=== PATIENT | male | born 1940 | race Caucasian/White ===

== ENCOUNTER → 2019-10-22 08:24 | Outpatient (BNVA) | payer MEDICARE, SELFPAY | PROVIDERS: Family Provider Family Medicine; PCP Family Medicine; Visit Provider Urology | DX: N40.1 Benign prostatic hyperplasia with lower urinary tract symptoms (principal); N41.1 Chronic prostatitis | CPT/HCPCS: 81001 ==

== ENCOUNTER → 2020-10-24 07:54 | Outpatient (BNVA) | payer MEDICARE, SELFPAY | PROVIDERS: Family Provider Family Medicine; PCP Family Medicine; Visit Provider Urology | DX: N40.1 Benign prostatic hyperplasia with lower urinary tract symptoms (principal); N41.1 Chronic prostatitis | CPT/HCPCS: 81003 ==

== ENCOUNTER → 2021-08-15 14:08 | Outpatient (BNVA) | payer MEDICARE, SELFPAY | PROVIDERS: Family Provider Family Medicine; PCP Family Medicine; Visit Provider Family Medicine | DX: Z00.00 Encounter for general adult medical examination without abnormal findings (principal); I10 Essential (primary) hypertension; E78.5 Hyperlipidemia, unspecified; E11.9 Type 2 diabetes mellitus without complications | CPT/HCPCS: 80053; 80061; 83036; 85007; 85025 ==

== ENCOUNTER → 2021-10-31 08:30 | Outpatient (BNVA) | payer MEDICARE, SELFPAY | PROVIDERS: Family Provider Family Medicine; PCP Family Medicine; Visit Provider Urology | DX: N40.1 Benign prostatic hyperplasia with lower urinary tract symptoms (principal); N41.1 Chronic prostatitis | CPT/HCPCS: 51798; 81003; 99213 ==

== ENCOUNTER → 2022-02-20 08:27 | Outpatient (BNVA) | payer MEDICARE, SELFPAY | PROVIDERS: Family Provider Family Medicine; PCP Family Medicine; Visit Provider Family Medicine | DX: I10 Essential (primary) hypertension (principal); E78.5 Hyperlipidemia, unspecified; E11.9 Type 2 diabetes mellitus without complications; N41.1 Chronic prostatitis | CPT/HCPCS: 80053; 80061; 83036 ==

== ENCOUNTER → 2022-08-28 08:05 | Outpatient (BNVA) | payer MEDICARE, SELFPAY | PROVIDERS: Family Provider Family Medicine; PCP Family Medicine; Visit Provider Family Medicine | DX: I10 Essential (primary) hypertension (principal); E78.5 Hyperlipidemia, unspecified; E11.9 Type 2 diabetes mellitus without complications | CPT/HCPCS: 80053; 80061; 83036 ==

== ENCOUNTER → 2023-03-11 13:50 | Outpatient (BNVA) | payer MEDICARE, SELFPAY | PROVIDERS: Family Provider Family Medicine; PCP Family Medicine; Visit Provider Family Medicine | DX: I10 Essential (primary) hypertension (principal); E78.5 Hyperlipidemia, unspecified; E11.9 Type 2 diabetes mellitus without complications | CPT/HCPCS: 80053; 80061; 83036 ==

== ENCOUNTER → 2023-09-19 07:33 | Outpatient (BNVA) | payer MEDICARE, SELFPAY | PROVIDERS: Family Provider Family Medicine; PCP Family Medicine; Visit Provider Family Medicine | DX: E11.9 Type 2 diabetes mellitus without complications (principal); E78.5 Hyperlipidemia, unspecified; I10 Essential (primary) hypertension | CPT/HCPCS: 80053; 80061; 83036; 85007; 85025 ==

== ENCOUNTER → 2023-10-16 08:02 | Outpatient (BNVA) | payer MEDICARE, SELFPAY | PROVIDERS: Family Provider Family Medicine; PCP Family Medicine; Visit Provider Family Medicine | DX: D72.829 Elevated white blood cell count, unspecified (principal) | CPT/HCPCS: 85007; 85025 ==

== ENCOUNTER → 2024-01-28 07:51 | Outpatient (BNVA) | payer MEDICARE, SELFPAY | PROVIDERS: Family Provider Family Medicine; PCP Family Medicine; Visit Provider Family Medicine | DX: D72.829 Elevated white blood cell count, unspecified (principal); E11.9 Type 2 diabetes mellitus without complications | CPT/HCPCS: 85025 ==

== ENCOUNTER → 2024-03-19 07:53 | Outpatient (BNVA) | payer MEDICARE, SELFPAY | PROVIDERS: Family Provider Family Medicine; PCP Family Medicine; Visit Provider Family Medicine | DX: I10 Essential (primary) hypertension (principal); E11.9 Type 2 diabetes mellitus without complications; E78.5 Hyperlipidemia, unspecified; D72.829 Elevated white blood cell count, unspecified | CPT/HCPCS: 80053; 80061; 80503; 83036; 85025 ==

== ENCOUNTER 2024-05-26 13:00 | Oncology outpatient (recurring) (ONCR) | payer MEDICARE, SELFPAY ==
[2024-05-13 16:02] LABS: Erythrocyte Sedimentation Rate 5 mm/hr (0-10); Reticulocyte % 1.8 % (0.5-2.0)
[2024-05-13 16:16] LABS: Alanine Aminotransferase 22 U/L (0-41); Alkaline Phosphatase 98 U/L (40-130); Aspartate Amino Transferase 23 U/L (0-40); Blood Urea Nitrogen 12 mg/dL (8-23); Calcium 9.4 mg/dL (8.5-10.5); Carbon Dioxide 26 mmol/L (22-29); Chloride 105 mmol/L (98-107); Globulin 3.1 g/dL (1.3-4.6); Glucose 146 mg/dL (65-115); Immunoglobulin IGA 167 mg/dL (70-400); Immunoglobulin IGG 1335 mg/dL (700-1600); Immunoglobulin IGM 61 mg/dL (40-230); Osmolality Calculated 292 mOsm/kg (285-295); Phosphorus 3.5 mg/dL (2.5-4.5); Sodium 140 mmol/L (136-145); Total Bilirubin 0.5 mg/dL (0.15-1.2); Total Protein 7.1 g/dL (6.6-8.7); Uric Acid 5.1 mg/dL (3.4-7.0)
[2024-05-13 16:23] LABS: Basophils # 0.1 10^3/uL (0.0-0.1); Basophils % 0.4 %; Eosinophils # 0.1 10^3/uL (0.0-0.8); Eosinophils % 0.9 %; Hematocrit 39.5 % (37-53); Lymphocytes # 11.1 10^3/uL (0.8-4.8); Mean Corpuscular HGB Conc 33.9 g/dL (30-55); Mean Corpuscular Hemoglobin 30.6 pg (27-33); Mean Corpuscular Volume 90.2 fl (82-101); Mean Platelet Volume 9.9 fL (7.4-10.4); Monocytes # 0.6 10^3/uL (0.2-0.9); Monocytes % 3.8 %; Neutrophils # 3.91 10^3/uL (1.8-7.7); Neutrophils % 24.7 %; Nucleated Red Blood Cells % 0 %; Platelet Count 197 10^3/cmm (157-399); Red Blood Count 4.38 10^6/uL (3.85-5.65); Red Cell Distribution Width 12.2 % (12.1-15.1); White Blood Count 15.82 10^3/uL (3.29-11.43)
[2024-05-13 16:48] LABS: Slide Review Slide Review Perform
[2024-05-13 16:55] LABS: Lactate Dehydrogenase 175 U/L (135-225)
[2024-05-14 06:00] LABS: PROTEIN, TOTAL 7.2 g/dL (6.1-8.1)
[2024-05-14 06:03] LABS: Beta-2-Microglobulin 2.88 mg/L (< OR = 2.51)
[2024-05-14 20:30] LABS: ALBUMIN 4.3 g/dL (3.8-4.8); ALPHA 1 GLOBULIN 0.3 g/dL (0.2-0.3); ALPHA 2 GLOBULIN 0.6 g/dL (0.5-0.9); BETA 1 GLOBULIN 0.5 g/dL (0.4-0.6); BETA 2 GLOBULIN 0.3 g/dL (0.2-0.5); GAMMA GLOBULIN 1.2 g/dL (0.8-1.7)
[2024-05-17 14:04] LABS: Immunofixation Serum Normal pattern.
[2024-05-18 07:38] LABS: Leukemia Profile (BBPL) See Report
[2024-05-26] MEDS: iohexol 350 mg/mL 500 mL Btl (per mL) PO (12:35)
--- NOTE | 2024-05-26 13:00 | CTR_ITS ---
PROCEDURE INFORMATION: Exam: CT Chest With Contrast; Diagnostic Exam date and time: 05/26/2024 1:19 PM Age: 83 years old Clinical indication: Condition or disease; Other: Leukocytosis TECHNIQUE: Imaging protocol: Diagnostic computed tomography of the chest with contrast. Radiation optimization: All CT scans at this facility use at least one of these dose optimization techniques: automated exposure control; mA and/or kV adjustment per patient size (includes targeted exams where dose is matched to clinical indication); or iterative reconstruction. Contrast material: OMNI 350; Contrast volume: 75 ml; Contrast route: INTRAVENOUS (IV); COMPARISON: CR XR chest 1V [id number] 12/17/2017 7:42 PM RADIATION DOSE METRICS: Total DLP (mGy-cm): 1067.5 FINDINGS: Lungs: Small nodules at each lung base. The largest is on the right and measures 7 mm in diameter, this largest area is in the location of a slightly nodular infiltrate. Pleural spaces: Unremarkable. No pneumothorax. No pleural effusion. Heart: Unremarkable. No cardiomegaly. No pericardial effusion. Coronary arteries: Coronary artery calcifications. Lymph nodes: Unremarkable. No enlarged lymph nodes. Vasculature: Unremarkable. No aortic aneurysm. Bones/joints: Unremarkable. No acute fracture. Soft tissues: Unremarkable. Chest at 18-24 months. (Reference: Carolannhoshlomo) REFERENCES: Carolannhoshlomo H, et al. Guidelines for Management of Incidental Pulmonary Nodules Detected on CT Images: From the Fleischner Society 2017. Radiology. 2017;284(1):228-243. PROCEDURE INFORMATION: Exam: CT Abdomen And Pelvis With Contrast Exam date and time: 05/26/2024 1:19 PM Age: 83 years old Clinical indication: Condition or disease; Other: Leukocytosis TECHNIQUE: Imaging protocol: Computed tomography of the abdomen and pelvis with contrast. Radiation optimization: All CT scans at this facility use at least one of these dose optimization techniques: automated exposure control; mA and/or kV adjustment per patient size (includes targeted exams where dose is matched to clinical indication); or iterative reconstruction. Contrast material: OMNI 350; Contrast volume: 75 ml; Contrast route: INTRAVENOUS (IV); COMPARISON: CT abdomen pelvis w con* [id number] 12/17/2017 6:25 PM RADIATION DOSE METRICS: Total DLP (mGy-cm): 1067.5 FINDINGS: Liver: Normal. No mass. Gallbladder and biliary ducts: Normal. No calcified stones. No ductal dilation. Pancreas: Normal. No ductal dilation. Spleen: Mild 13 cm splenomegaly. Adrenal glands: Normal. No mass. Kidneys and ureters: Small bilateral renal cysts. Stomach and bowel: Diverticulosis without evidence of diverticulitis. Appendix: No evidence of appendicitis. Intraperitoneal space: Unremarkable. No free air. No significant fluid collection. Vasculature: Unremarkable. No abdominal aortic aneurysm. Lymph nodes: Unremarkable. No enlarged lymph nodes. Urinary bladder: Unremarkable as visualized. Reproductive: Unremarkable as visualized. Bones/joints: Bilateral L5 spondylolysis with minimal spondylolisthesis. Soft tissues: Unremarkable. CT/CT chest abdpel w/*[id number] IMPRESSION: 1. Small lower lobe pulmonary nodules. 2. For patients at low risk (minimal or absent history of smoking and of other known risk factors), recommend CT Chest at 3-6 months, then consider CT Chest at 18-24 months. For patients at high risk (history of smoking or of other known risk factors), recommend CT Chest at 3-6 months, then CT IMPRESSION: No acute findings. COMMENTS: Consistent with the [employer]'s Incidental Findings Committee white paper (J Am Chen Radiol 2018): Any incidental renal lesion less than 1 cm or classified as too small to characterize, or any incidental cystic renal lesion characterized as simple-appearing, is likely benign. No follow-up imaging is recommended for these lesions per consensus recommendations based on imaging criteria.
--- NOTE | 2024-05-26 13:30 | CTR_ITS ---
PROCEDURE INFORMATION: Exam: CT Neck With Contrast Exam date and time: 05/26/2024 1:26 PM Age: 83 years old Clinical indication: Condition or disease; Other: Leukocytosis TECHNIQUE: Imaging protocol: Computed tomography of the neck with contrast. Sagittal and coronal reformatted images were also reviewed. Radiation optimization: All CT scans at this facility use at least one of these dose optimization techniques: automated exposure control; mA and/or kV adjustment per patient size (includes targeted exams where dose is matched to clinical indication); or iterative reconstruction. Contrast material: OMNI 350; Contrast volume: 75 ml; Contrast route: INTRAVENOUS (IV); COMPARISON: CT chest abdpel w/*[id number] 05/26/2024 1:19 PM RADIATION DOSE METRICS: Total DLP (mGy-cm): 205.96 FINDINGS: Orbital cavities: No acute abnormality in the visualized orbits. Paranasal sinuses: Visualized paranasal sinuses are clear. Mastoid air cells: Visualized mastoid air cells are clear. Salivary glands: The right and left parotid glands are unremarkable. The right and left submandibular glands are unremarkable. Pharynx: Unremarkable. No significant tonsillar enlargement. Larynx: The larynx is unremarkable. The epiglottis is unremarkable. Thyroid: Small nodules in the thyroid gland, the largest in the left thyroid lobe measures 1.7 x 1.4 cm (series 3, image 86). Trachea: Trachea is midline and patent. Lungs: Visualized lungs are clear. Lymph nodes: No lymphadenopathy. Vasculature: Moderate atherosclerotic changes in the visualized arteries. Bones/joints: Multilevel degenerative changes of varying severity in the visualized spine. Soft tissues: No soft tissue swelling or soft tissue emphysema. No radiopaque foreign body. No abscess. CT/CT neck w con* [id number] IMPRESSION: 1. No acute abnormality of the cervical soft tissues. 2. Small nodules in the thyroid gland, the largest in the left thyroid lobe measures 1.7 x 1.4 cm. Follow-up non-emergent thyroid ultrasound is recommended. 3. Incidental/nonacute findings are listed in the report. COMMENTS: Consistent with the [employer]'s Incidental Findings Committee white paper (J Am Chen Radiol 2015): In patients aged 35 years and older with an incidental thyroid nodule equal to or greater than 1.[address], MRI or extrathyroidal US, further evaluation with dedicated thyroid US is recommended for patients with normal life expectancy and without comorbidities. For smaller nodules without suspicious features, no further evaluation or follow up is recommended.
[2024-05-26] MEDS: iohexol 350 mg/mL 500 mL Btl (per mL) IV (13:31)
== END 2024-06-01 23:59 | disposition home or self-care (01) ==
LOC: RAD 05-27 → ONCMED 05-27 11:16
PROVIDERS: Family Provider Family Medicine; PCP Family Medicine; Visit Provider Internal Medicine
DX: Z53.9 Procedure and treatment not carried out, unspecified reason (principal); D72.89 Other specified disorders of white blood cells; R91.8 Other nonspecific abnormal finding of lung field; E04.1 Nontoxic single thyroid nodule
CPT/HCPCS: 36415; 70491; 71260; 74177; 80053; 82232; 82784; 83010; 83615; 84100; 84155; 84165; 84550; 85025; 85045; 85651; 86334; 86880; 88184; 88185; 99204

== ENCOUNTER 2024-06-24 12:00 | Oncology outpatient (recurring) (ONCR) | payer MEDICARE, SELFPAY ==
--- NOTE | 2024-06-18 10:30 | USR_ITS ---
PROCEDURE INFORMATION: Exam: US Bilateral Noninvasive Physiologic Study of the Lower Extremity Arteries, Limited Exam date and time: 06/18/2024 10:10 AM Age: 83 years old Clinical indication: Pain; Leg, lower; Bilateral; Additional info: Claudication TECHNIQUE: Imaging protocol: Bilateral Limited bilateral noninvasive physiologic studies of lower extremity arteries. Waveforms were obtained and evaluated. Images were documented and archived. Exam is limited. COMPARISON: CT abdomen pelvis w con* [id number] 12/17/2017 6:25 PM FINDINGS: Right Ankle-Brachial Index: 0.78 at the ankle, 0.81 at the dorsalis pedis, 0.55 at the digit. Left Ankle-Brachial Index: 0.58 at the ankle, the 0.43 at the digits. US/CV ankle brachial index [id number] IMPRESSION: Diminished JOSEPH particularly on the left side.
[2024-06-24 12:07] LABS: Hematocrit 41.4 % (37-53); Mean Corpuscular HGB Conc 33.8 g/dL (30-55); Mean Corpuscular Hemoglobin 30.2 pg (27-33); Mean Corpuscular Volume 89.2 fl (82-101); Mean Platelet Volume 9.8 fL (7.4-10.4); Platelet Count 204 10^3/cmm (157-399); Red Blood Count 4.64 10^6/uL (3.85-5.65); Red Cell Distribution Width 12.1 % (12.1-15.1)
[2024-06-24 12:09] LABS: Erythrocyte Sedimentation Rate 4 mm/hr (0-10)
[2024-06-24 12:23] LABS: Alanine Aminotransferase 16 U/L (0-41); Albumin Level 4.2 g/dL (3.5-5.2); Alkaline Phosphatase 110 U/L (40-130); Anion Gap 12.9 (5-19); Aspartate Amino Transferase 15 U/L (0-40); Blood Urea Nitrogen 12 mg/dL (8-23); Calcium 9.7 mg/dL (8.5-10.5); Carbon Dioxide 27 mmol/L (22-29); Chloride 104 mmol/L (98-107); Creatinine Clr Calc Pharmacy 69.5151; Globulin 3.3 g/dL (1.3-4.6); Glucose 211 mg/dL (65-115); Lactate Dehydrogenase 167 U/L (135-225); Osmolality Calculated 294 mOsm/kg (285-295); Potassium 4.9 mmol/L (3.5-5.1); Sodium 139 mmol/L (136-145); Total Bilirubin 0.7 mg/dL (0.15-1.2); Total Protein 7.5 g/dL (6.6-8.7)
[2024-06-24 12:36] LABS: Slide Review Slide Review Perform
[2024-06-24 12:37] LABS: Absolute Eosinophils 0.2 10^3/cmm (0.0-0.7); Absolute Neutrophil 2.8 10^3/cmm (1.4-6.5); Absolute Segmented Neutrophil 2.5 10/cmm (1.6-7.1); Band Neutrophils Absolute 0.3 10^3/cmm (0.0-1.2); Eosinophils 1 %; Lymphocytes 30 %; Lymphocytes Absolute 12.2 10^3/cmm (1.2-3.4); Monocytes Absolute 0.5 10^3/cmm (0.1-0.6); Platelet Estimate Normal (Normal); Segmented Neutrophils 16 %; Total Cells Counted 100 (0-100)
[2024-06-25 07:29] LABS: PROTEIN, TOTAL 6.8 g/dL (6.1-8.1)
[2024-06-26 11:39] LABS: ALPHA 1 GLOBULIN 0.2 g/dL (0.2-0.3); ALPHA 2 GLOBULIN 0.6 g/dL (0.5-0.9); BETA 1 GLOBULIN 0.4 g/dL (0.4-0.6); BETA 2 GLOBULIN 0.4 g/dL (0.2-0.5); GAMMA GLOBULIN 1.2 g/dL (0.8-1.7)
[2024-06-28 15:24] LABS: Immunofixation Serum Normal pattern.
[2024-07-02 21:25] LABS: IGVH Status MUTATED
== END 2024-07-01 23:59 | disposition home or self-care (01) ==
PROVIDERS: Internal Medicine; Family Provider Family Medicine; PCP Family Medicine; Visit Provider Family Medicine
DX: Z53.9 Procedure and treatment not carried out, unspecified reason; C91.10 Chronic lymphocytic leukemia of B-cell type not having achieved remission; I10 Essential (primary) hypertension; E78.5 Hyperlipidemia, unspecified; E11.9 Type 2 diabetes mellitus without complications; N41.1 Chronic prostatitis; R91.8 Other nonspecific abnormal finding of lung field; E04.1 Nontoxic single thyroid nodule; Z87.891 Personal history of nicotine dependence
CPT/HCPCS: 36415; 80053; 81263; 82232; 83615; 84155; 84165; 85007; 85025; 85651; 86334; 88185; 88264; 88271; 88367; 88374; 93922; 99213

== ENCOUNTER 2024-07-02 09:15 | Oncology outpatient (recurring) (ONCR) | payer MEDICARE, SELFPAY ==
--- NOTE | 2024-07-02 09:30 | US_ITS ---
WS: [id number] Thyroid ultrasound, 07/02/2024 Clinical Data: thyroid nodules Comparison: None. Findings: The right lobe of thyroid measures 4.9 cm x 1.5 cm x 2.2 cm. The left lobe measures 4.7 cm x 2.6 cm x 3.0 cm. The isthmus measured 0.3 mm. The echotexture of the thyroid is mixed. Numerous small cysts are seen. There is a nodule in the left thyroid measuring 2.1 x 2.2 x 2.4 cm. US/US thyroid [id number] Impression: 1. Multinodular goiter. 2. Small nodule left thyroid.
== END 2024-08-01 23:59 | disposition home or self-care (01) ==
PROVIDERS: PCP Family Medicine; Visit Provider Internal Medicine
DX: C91.10 Chronic lymphocytic leukemia of B-cell type not having achieved remission (principal); E04.1 Nontoxic single thyroid nodule; E04.2 Nontoxic multinodular goiter
CPT/HCPCS: 76536

== ENCOUNTER → 2024-07-07 10:29 | Outpatient (BNVA) | payer MEDICARE, SELFPAY | PROVIDERS: PCP Family Medicine; Visit Provider Internal Medicine | DX: E04.1 Nontoxic single thyroid nodule (principal) | CPT/HCPCS: 99214 ==

== ENCOUNTER 2024-08-21 07:32 | Oncology outpatient (recurring) (ONCR) | payer MEDICARE, SELFPAY ==
--- NOTE | 2024-08-21 07:45 | CTR_ITS ---
PROCEDURE INFORMATION: Exam: CT Chest With Contrast; Diagnostic Exam date and time: 08/21/2024 8:03 AM Age: 84 years old Clinical indication: Condition or disease; Other: Thyroid nodule; Additional info: Thyroid nodules, Dr morales would like this 09/16/24 TECHNIQUE: Imaging protocol: Diagnostic computed tomography of the chest with contrast. Radiation optimization: All CT scans at this facility use at least one of these dose optimization techniques: automated exposure control; mA and/or kV adjustment per patient size (includes targeted exams where dose is matched to clinical indication); or iterative reconstruction. Contrast material: OMNI 350; Contrast volume: 100 ml; Contrast route: INTRAVENOUS (IV); COMPARISON: CT chest abdpel w/*[id number] 05/26/2024 1:19 PM RADIATION DOSE METRICS: Total DLP (mGy-cm): 456.62 FINDINGS: Thyroid: Multiple thyroid nodules are noted. The largest nodule measures 1.3 cm on the left. Lungs: There is a group of tiny irregular pleural-based nodules within the superior aspect of the right lower lobe. The largest nodule within this group measures 8 mm. No other nodule or infiltrate noted. Pleural spaces: Unremarkable. No pneumothorax. No pleural effusion. Heart: Unremarkable. No cardiomegaly. No pericardial effusion. Lymph nodes: Unremarkable. No enlarged lymph nodes. Vasculature: Unremarkable. No aortic aneurysm. Bones/joints: Unremarkable. No acute fracture. Soft tissues: Unremarkable. CT/CT chest w con* [id number] IMPRESSION: 1. Stable small thyroid nodules 2. Stable right lung nodules which are felt to most likely represent granulomas 3. For patients at low risk (minimal or absent history of smoking and of other known risk factors), no routine follow-up is indicated. For patients at high risk (history of smoking or of other known risk factors), consider optional CT Chest at 12 months. (Reference: Nilay) COMMENTS: Consistent with the [employer]'s Incidental Findings Committee white paper (J Am Chen Radiol 2015): In patients aged 35 years and older with an incidental thyroid nodule equal to or greater than 1.[address], MRI or extrathyroidal US, further evaluation with dedicated thyroid US is recommended for patients with normal life expectancy and without comorbidities. For smaller nodules without suspicious features, no further evaluation or follow up is recommended. REFERENCES: Nilay Bates et al. Guidelines for Management of Incidental Pulmonary Nodules Detected on CT Images: From the Fleischner Society 2017. Radiology. 2017;284(1):228-243.
[2024-08-21] MEDS: iohexol 350 mg/mL 500 mL Btl (per mL) IV (07:51)
[2024-08-21 08:00] LABS: Blood Urea Nitrogen 13 mg/dL (8-23)
== END 2024-08-31 23:59 | disposition home or self-care (01) ==
LOC: ONCMED 07:33 → RAD 07:33 → ONCMED 08-24 10:00
PROVIDERS: PCP Family Medicine; Visit Provider Internal Medicine
DX: C91.10 Chronic lymphocytic leukemia of B-cell type not having achieved remission (principal); E04.1 Nontoxic single thyroid nodule; E04.2 Nontoxic multinodular goiter
CPT/HCPCS: 71260; 82565; 84520

== ENCOUNTER → 2024-09-17 08:07 | Outpatient (BNVA) | payer MEDICARE, SELFPAY | PROVIDERS: PCP Family Medicine; Visit Provider Family Medicine | DX: D72.820 Lymphocytosis (symptomatic) (principal); I10 Essential (primary) hypertension; E78.5 Hyperlipidemia, unspecified; E11.9 Type 2 diabetes mellitus without complications | CPT/HCPCS: 80053; 80061; 83036; 85025 ==

== ENCOUNTER 2024-09-23 12:58 | Oncology outpatient (recurring) (ONCR) | payer MEDICARE, SELFPAY ==
[2024-09-23 13:47] LABS: Hematocrit 41.4 % (37-53); Hemoglobin 14.20 g/dL (11.27-16.99); Mean Corpuscular HGB Conc 34.3 g/dL (30-55); Mean Corpuscular Hemoglobin 30.7 pg (27-33); Mean Corpuscular Volume 89.6 fl (82-101); Platelet Count 233 10^3/cmm (157-399); Red Blood Count 4.62 10^6/uL (3.85-5.65); White Blood Count 16.37 10^3/uL (3.29-11.43)
[2024-09-23 14:06] LABS: Alanine Aminotransferase 16 U/L (0-41); Albumin Level 4.1 g/dL (3.5-5.2); Alkaline Phosphatase 111 U/L (40-130); Anion Gap 17.0 (5-19); Aspartate Amino Transferase 17 U/L (0-40); Blood Urea Nitrogen 11 mg/dL (8-23); Calcium 9.8 mg/dL (8.5-10.5); Carbon Dioxide 25 mmol/L (22-29); Chloride 102 mmol/L (98-107); Creatinine Clr Calc Pharmacy 68.0122; Globulin 3.3 g/dL (1.3-4.6); Glucose 186 mg/dL (65-115); Osmolality Calculated 294 mOsm/kg (285-295); Potassium 4.0 mmol/L (3.5-5.1); Sodium 140 mmol/L (136-145); Total Protein 7.4 g/dL (6.6-8.7)
[2024-09-23 14:29] LABS: Slide Review Slide Review Perform; Total Cells Counted 100 (0-100)
[2024-09-23 14:30] LABS: Absolute Segmented Neutrophil 4.4 10/cmm (1.6-7.1); Atypical Lymphs 21.0 % (0-5); Band Neutrophils Absolute 0.0 10^3/cmm (0.0-1.2)
[2024-09-24 05:20] LABS: PROTEIN, TOTAL 7.3 g/dL (6.1-8.1)
[2024-09-24 19:19] LABS: ALPHA 1 GLOBULIN 0.3 g/dL (0.2-0.3); ALPHA 2 GLOBULIN 0.7 g/dL (0.5-0.9); BETA 1 GLOBULIN 0.5 g/dL (0.4-0.6); BETA 2 GLOBULIN 0.4 g/dL (0.2-0.5)
== END 2024-10-01 23:59 | disposition home or self-care (01) ==
PROVIDERS: PCP Family Medicine; Visit Provider Internal Medicine
DX: C91.10 Chronic lymphocytic leukemia of B-cell type not having achieved remission (principal); E04.1 Nontoxic single thyroid nodule; N41.1 Chronic prostatitis; R91.8 Other nonspecific abnormal finding of lung field; E11.9 Type 2 diabetes mellitus without complications; I10 Essential (primary) hypertension
CPT/HCPCS: 36415; 80053; 82784; 83010; 83615; 84155; 84165; 85007; 85025; 85651; 86334; 99213

== ENCOUNTER 2024-12-23 12:00 | Oncology outpatient (recurring) (ONCR) | payer MEDICARE, SELFPAY ==
[2024-12-23 12:44] LABS: Hematocrit 40.1 % (37-53); Hemoglobin 13.80 g/dL (11.27-16.99); Mean Corpuscular HGB Conc 34.4 g/dL (30-55); Mean Corpuscular Hemoglobin 30.5 pg (27-33); Mean Corpuscular Volume 88.5 fl (82-101); Nucleated Red Blood Cells % 0 %; Platelet Count 211 10^3/cmm (157-399); Red Blood Count 4.53 10^6/uL (3.85-5.65); White Blood Count 14.80 10^3/uL (3.29-11.43)
[2024-12-23 13:08] LABS: Alanine Aminotransferase 19 U/L (0-41); Albumin Level 4.4 g/dL (3.5-5.2); Alkaline Phosphatase 113 U/L (40-130); Anion Gap 15.5 (5-19); Aspartate Amino Transferase 19 U/L (0-40); Blood Urea Nitrogen 11 mg/dL (8-23); Calcium 9.5 mg/dL (8.5-10.5); Carbon Dioxide 26 mmol/L (22-29); Chloride 103 mmol/L (98-107); Creatinine Clr Calc Pharmacy 68.9863; Globulin 2.9 g/dL (1.3-4.6); Glucose 240 mg/dL (65-115); Osmolality Calculated 297 mOsm/kg (285-295); Potassium 4.5 mmol/L (3.5-5.1); Sodium 140 mmol/L (136-145); Total Protein 7.3 g/dL (6.6-8.7); Uric Acid 5.2 mg/dL (3.4-7.0)
[2024-12-23 13:41] LABS: Slide Review Slide Review Perform
== END 2025-01-01 23:59 | disposition home or self-care (01) ==
PROVIDERS: PCP Family Medicine; Visit Provider Internal Medicine
DX: C91.10 Chronic lymphocytic leukemia of B-cell type not having achieved remission (principal); N41.1 Chronic prostatitis; E11.9 Type 2 diabetes mellitus without complications; I10 Essential (primary) hypertension; E04.1 Nontoxic single thyroid nodule; R91.8 Other nonspecific abnormal finding of lung field
CPT/HCPCS: 36415; 80053; 83615; 84550; 85025; 99213

== ENCOUNTER → 2025-01-07 08:07 | Outpatient (BNVA) | payer MEDICARE, SELFPAY | PROVIDERS: PCP Family Medicine; Visit Provider Family Medicine | DX: E11.9 Type 2 diabetes mellitus without complications (principal) | CPT/HCPCS: 83036 ==